=== PATIENT | female | born 1975 | race Caucasian/White ===

== ENCOUNTER → 2021-02-01 | Outpatient (CLI) | payer OTHER ==
[~2021-02-01] MED LIST: LABE100 PO; LORA10ER PO; PRED10 PO; PROBIOTIC1 EAC1 PO
== END | disposition home or self-care (01) ==
LOC: LAB 10:55 → LAB SHORT 10:55
DX: D22.5 Melanocytic nevi of trunk (principal)
CPT/HCPCS: 88305

== ENCOUNTER → 2022-06-21 | Outpatient (CLI) | payer OTHER ==
[2022-06-22 09:11] LABS: HIV AB/P24 AG SCREEN Non Reactive (Non Reactive)
== END | disposition home or self-care (01) ==
LOC: LAB SHORT 11:00
PROVIDERS: Nurse Practitioner Family
DX: T14.8XXA Other injury of unspecified body region, initial encounter (principal)
CPT/HCPCS: 86803; 87389

== ENCOUNTER → 2022-08-07 | Outpatient (CLI) | payer OTHER ==
[2022-08-08 08:09] LABS: HIV AB/P24 AG SCREEN Non Reactive (Non Reactive)
== END ==
LOC: LAB 08:15 → LAB SHORT 08:15
PROVIDERS: Physician Assistant
DX: Z77.21 Contact with and (suspected) exposure to potentially hazardous body fluids (principal)
CPT/HCPCS: 87389

== ENCOUNTER → 2024-07-08 | Outpatient (CLI) | payer OTHER | LOC: PLD 07:42 → LAB SHORT 07:42 → LAB 07:42 | DX: N93.9 Abnormal uterine and vaginal bleeding, unspecified (principal) | CPT/HCPCS: 88305 ==

== ENCOUNTER 2024-10-24 06:08 | Day surgery (SDC) | payer OTHER ==
[~2024-10-24] VITALS: Ht 162.6 cm; Wt 97.6 kg
[2024-10-24] MEDS ORDERED: LABETALOL (06:49)
[2024-10-24] MEDS ORDERED: propofoL 20 ML IV ONE ×2 (06:49→07:32)
[2024-10-24] MEDS ORDERED: ZOLOFT25 MG (06:50)
[2024-10-24] MEDS ORDERED: FentaNYL Citrate 50 MCG/ML 2 ML Injection ONE (06:50)
[2024-10-24] MEDS ORDERED: Midazolam HCl 1MG / ML 2ML Vial ONE (06:50)
[2024-10-24] MEDS ORDERED: HYDROCHLOROT TAB 12. (06:50)
[2024-10-24] MEDS ORDERED: NASONEX 24HR AL17 ML (06:51)
[2024-10-24] MEDS ORDERED: Vitamin D1000 UNI1 (06:51)
[2024-10-24] MEDS ORDERED: CETI5 (06:51)
[2024-10-24] MEDS ORDERED: Ondansetron HCl 2 MG / ML 2ML Vial ONE (06:54)
[2024-10-24] MEDS ORDERED: Dexamethasone Sod Phos 10 MG/ML 1ML VIAL ONE (06:54)
[2024-10-24] MEDS ORDERED: Lactated Ringer's 1,000 ML IV ONE (07:18)
[2024-10-24] MEDS ORDERED: Ketorolac Tromethamine 30mg Vial ONE (08:05)
--- NOTE | 2024-10-24 08:18 | NUR ---
10/24/24 0818 Lucina Louie MYORE NORMAL SALINE FLUID DEFICIT OF 85ML, DR. POLLARD NOTIFIED
[2024-10-24] MEDS ORDERED: OxyCODONE 5 mg/Acetamin 325 mg TABLET ONE (08:53)
[2024-10-24 09:06] VITALS: BP 143/81
== END 2024-10-24 09:12 | disposition home or self-care (01) ==
LOC: ORSCSDS 06:08
PROVIDERS: Obstetrics & Gynecology
PROC: 0U5B8ZZ Destruction of Endometrium, Via Natural or Artificial Opening Endoscopic (ICD-10-PCS; principal; 2024-10-24 07:30)
DX: N93.9 Abnormal uterine and vaginal bleeding, unspecified (principal); I10 Essential (primary) hypertension; E78.5 Hyperlipidemia, unspecified; E03.9 Hypothyroidism, unspecified; E66.9 Obesity, unspecified; Z68.36 Body mass index [BMI] 36.0-36.9, adult
CPT/HCPCS: 88305; A9270; J1100; J1885; J2250; J2405; J2704; J3010